=== PATIENT | male | born 1995 | race Caucasian/White ===

== ENCOUNTER 2018-07-06 00:38 | Emergency (ER) | payer OTHER ==
[~2018-07-06] VITALS: Ht 180.3 cm; Wt 78.6 kg
[2018-07-06] MEDS ORDERED: ONDANSETRON 2MG/ML, 2ML ONE (00:57)
[2018-07-06] MEDS ORDERED: SODIUM CHLORIDE 0.9% 1,000ML IVBOLUS ONE (01:00)
[2018-07-06] MEDS ORDERED: ONDANSETRON 2MG/ML, 2ML IVPush ONE (01:00)
[2018-07-06 01:19] LABS: MEAN CORPUSCULAR HEMOGLOBIN 32.1 pg (27.5-34.5); MEAN CORPUSCULAR HGB CONC 34.4 g/dL (33.2-36.2); MEAN CORPUSCULAR VOLUME 93.4 fL (81-97); MEAN PLATELET VOLUME 7.5 fL (7.4-10.4); PLATELET COUNT 280 x10^3/uL (130-400); RED BLOOD COUNT 5.13 x10^6/uL (4.38-5.82); RED CELL DISTRIBUTION WIDTH 13.2 % (9.4-14.8)
[2018-07-06 01:32] LABS: ALANINE AMINOTRANSFERASE 33 U/L (12-78); ALBUMIN 4.6 g/dL (3.4-5.0); ANION GAP 14 mmol/L (5-15); CALCIUM 8.8 mg/dL (8.5-10.1); CHLORIDE 105 mmol/L (98-107)
[2018-07-06 01:34] LABS: ALKALINE PHOSPHATASE 87 U/L (45-117); BILIRUBIN,TOTAL 0.6 mg/dL (0.2-1.0); TOTAL PROTEIN 8.3 g/dL (6.4-8.2)
[2018-07-06 01:35] LABS: RAPID INFLUENZA A Negative (Negative); RAPID INFLUENZA B Negative (Negative)
[2018-07-06 01:41] LABS: BASOPHILS # (AUTO) 0.04 x10^3/uL (0-0.1); BASOPHILS % (AUTO) 0 % (0-1); EOSINOPHILS # (AUTO) 0.04 x10^3/uL (0-0.4); EOSINOPHILS % (AUTO) 0 % (1-7); LYMPHOCYTES # (AUTO) 1.45 x10^3/uL (1-3.4); LYMPHOCYTES % (AUTO) 8 % (22-44); MD SCAN; MONOCYTES # (AUTO) 0.54 x10^3/uL (0.2-0.8); MONOCYTES % (AUTO) 3 % (2-9); NEUTROPHILS # (AUTO) 16.64 x10^3/uL (1.8-6.8); NEUTROPHILS % (AUTO) 89 % (42-75)
[2018-07-06 03:36] VITALS: BP 110/74
== END 2018-07-06 03:37 | disposition home or self-care (01) ==
LOC: ED 01:33
DX: R19.7 Diarrhea, unspecified (principal); E86.0 Dehydration; E16.2 Hypoglycemia, unspecified; R11.0 Nausea
CPT/HCPCS: 36415; 80053; 82962; 83690; 85025; 87400; 96361; 96374; 99283; J2405; J7030

== ENCOUNTER 2020-02-23 13:32 | Emergency (ER) | payer OTHER ==
[~2020-02-23] VITALS: Ht 180.3 cm; Wt 83.0 kg
[2020-02-23 13:45] VITALS: BP 100/60
[2020-02-23] MEDS ORDERED: LIDOCAINE-MPF 1%, 5ML ONE ×2 (13:56→14:06)
[2020-02-23] MEDS ORDERED: LIDOCAINE-MPF 1%, 5ML INFIL ONE (14:00)
--- NOTE | 2020-02-23 14:00 | NUR ---
PT HAS FULL THICKNESS LAC TO L LOWER LEG. COVERED WITH STERILE SALINE SOAKED GAUZE. PT REQUESTING PAIN MEDICATION; NOTE WRITTEN TO ERP. Addendum: 02/23/20 at 1431 by JESSYON PT'S FATHER AT .
[2020-02-23] MEDS ORDERED: LIDOCAINE 1%-EPI 1:100K, 20ML ONE (14:29)
[2020-02-23] MEDS ORDERED: LIDOCAINE 1%-EPI 1:100K, 20ML SQ ONE (14:30)
--- NOTE | 2020-02-23 14:30 | NUR ---
ER PA AT NOW. Addendum: 02/23/20 at 1430 by HBENSON ERP NOTIFIED THAT PT REQUESTING PAIN MEDICATION. Addendum: 02/23/20 at 1442 by HBENSON ER PA AT TO NUMB LACERATION.
[2020-02-23] MEDS ORDERED: HYDROcodone/APAP 5/325 TABLET ONE (14:38)
[2020-02-23] MEDS ORDERED: HYDROcodone/APAP 5/325 TABLET PO ONE (15:00)
--- NOTE | 2020-02-23 15:42 | NUR ---
RLE LACERATION SUTURED BY REBECCA BELL. PT TOLERATED WELL. DRESSING APPLIED WITH ADAPTIC, STERILE GAUZE, KERLIX WRAP.
--- NOTE | 2020-02-23 16:06 | NUR ---
D/C INSTRUCTIONS, MEDS & F/U APPT RV'WD WITH PT, HE VERBALIZES UNDERSTANDING. PT UNDERSTANDS TO GET SUTURES REMOVED IN 10 DAYS. RX GIVEN X1. PT AMBULATED OUT OF ED WITH FATHER WITHOUT DIFFICULTY.
== END 2020-02-23 16:07 | disposition home or self-care (01) ==
LOC: ED 16:00
DX: S81.811A Laceration without foreign body, right lower leg, initial encounter (principal); W18.39XA Other fall on same level, initial encounter; Y93.89 Activity, other specified; Y92.098 Other place in other non-institutional residence as the place of occurrence of the external cause; Y99.8 Other external cause status
CPT/HCPCS: 12034; 99284